=== PATIENT | male | born 1980 | race Caucasian/White ===

== ENCOUNTER 2016-10-29 14:31 | Emergency (ER) | payer OTHER ==
[~2016-10-29] VITALS: Ht 165.1 cm; Wt 65.8 kg
[2016-10-29 14:57] VITALS: BP 141/85
[2016-10-29] MEDS ORDERED: MOBIC15 MG PO (15:05)
== END 2016-10-29 15:27 | disposition home or self-care (01) ==
LOC: ER 14:31
DX: S70.01XA Contusion of right hip, initial encounter (principal); S01.111D Laceration without foreign body of right eyelid and periocular area, subsequent encounter; W18.39XA Other fall on same level, initial encounter; Y93.89 Activity, other specified; Y92.89 Other specified places as the place of occurrence of the external cause; Y99.8 Other external cause status